=== PATIENT | female | born 1985 | race Caucasian/White ===

== ENCOUNTER 2020-07-17 20:41 | Emergency (ER) | payer OTHER ==
[~2020-07-17] VITALS: Ht 162.6 cm; Wt 78.0 kg
--- NOTE | 2020-07-17 21:14 | NUR ---
ERP AT NOW.
[2020-07-17 21:25] VITALS: BP 146/91
[2020-07-17] MEDS ORDERED: MAALOX/HYOSCYAMINE/LIDOCAINE 45 ML BTL ONE (21:27)
[2020-07-17] MEDS ORDERED: MAALOX/HYOSCYAMINE/LIDOCAINE 45 ML BTL PO ONE (21:30)
--- NOTE | 2020-07-17 21:36 | NUR ---
PT C/O SEVERE CHEST PAIN EARLIER TONIGHT AROUND 1800, REPORTS NOW SUBSIDED. STILL HAVING SOME R SIDED ABD PAIN, STATES SHE'S HAD INTERMITTENT ABD PAIN FOR ABOUT 2 YEARS. MEDICATED PT PER ORDERS. RV'WD POC WITH HER.
[2020-07-17 21:50] LABS: BASOPHILS # (AUTO) 0.02 x10^3/uL (0-0.1); BASOPHILS % (AUTO) 0 % (0-1); EOSINOPHILS # (AUTO) 0.18 x10^3/uL (0-0.4); EOSINOPHILS % (AUTO) 2 % (1-7); LYMPHOCYTES # (AUTO) 2.47 x10^3/uL (1-3.4); LYMPHOCYTES % (AUTO) 31 % (22-44); MD NO; MEAN CORPUSCULAR HEMOGLOBIN 31.6 pg (27.0-34.8); MEAN CORPUSCULAR HGB CONC 33.6 g/dL (32.4-35.8); MEAN CORPUSCULAR VOLUME 93.8 fL (80-100); MEAN PLATELET VOLUME 7.1 fL (7.4-10.4); MONOCYTES # (AUTO) 0.29 x10^3/uL (0.2-0.8); MONOCYTES % (AUTO) 4 % (2-9); NEUTROPHILS # (AUTO) 5.04 x10^3/uL (1.8-6.8); NEUTROPHILS % (AUTO) 63 % (42-75); PLATELET COUNT 421 x10^3/uL (130-400); RED BLOOD COUNT 4.27 x10^6/uL (3.82-5.3); RED CELL DISTRIBUTION WIDTH 13.3 % (9.6-15.2)
[2020-07-17 22:02] LABS: ALANINE AMINOTRANSFERASE 20 U/L (12-78); ALBUMIN 3.5 g/dL (3.4-5.0); ANION GAP 7 mmol/L (5-15); CALCIUM 9.1 mg/dL (8.5-10.1); CHLORIDE 106 mmol/L (98-107); CREATININE 0.77 mg/dL (0.55-1.02)
[2020-07-17 22:07] LABS: ALKALINE PHOSPHATASE 53 U/L (45-117); BILIRUBIN,TOTAL 0.3 mg/dL (0.2-1.0); TOTAL PROTEIN 7.4 g/dL (6.4-8.2)
--- NOTE | 2020-07-17 23:14 | NUR ---
D/C INSTRUCTIONS, MEDS & F/U APPT RV'WD WITH PT, SHE VERBALIZES UNDERSTANDING. RX GIVEN X2. PT AMBULATED OUT OF ED WITHOUT DIFFICULTY.
== END 2020-07-17 23:15 | disposition home or self-care (01) ==
LOC: ED 23:00
DX: K21.0 Gastro-esophageal reflux disease with esophagitis (principal); R07.89 Other chest pain; R94.31 Abnormal electrocardiogram [ECG] [EKG]; F17.210 Nicotine dependence, cigarettes, uncomplicated; Z90.89 Acquired absence of other organs
CPT/HCPCS: 36415; 71045; 76700; 80053; 83690; 84703; 85025; 85379; 93005; 99285; 99406